=== PATIENT | female | born 1980 | race Caucasian/White ===

== ENCOUNTER 2018-01-24 23:21 | Emergency (ER) | payer OTHER ==
[2018-01-24 23:31] VITALS: BP 117/79; PULSE 69; TEMP 98.8; BMI 23.3
[2018-01-25] MEDS ORDERED: KETOROLAC TROMETHAMINE 60 MG/2 ML VIAL IM ONE (00:54)
--- NOTE | 2018-01-25 01:10 | PDOC ---
History of Present Illness - General Chief Complaint: Pain Stated Complaint: PAIN, ACUTE Time Seen by Provider: 01/25/18 00:00 History Source: Patient Exam Limitations: No Limitations - History of Present Illness Initial Comments: 01/25/18 01:04 37 yo female no significant PMH presents to the ED for right lateral thigh pain for 2 days. Patient states she works at a [employer] and walks a lot but noticed pain in the right lateral thigh that progressively worsened today. Pain is described as sharp and well localized (no radiation). Tried 1000mg of Tylenol today without relief. Patient admits to pain with weight bearing or motion in all directions but denies any trauma to the region, weakness, fevers/ chills, abdominal pain or back pain. Last menstrual period 2 weeks ago. Past History - Past Medical History Allergies/Adverse Reactions: Allergies Allergy/AdvReac Type Severity Reaction Status Date / Time No Known Allergies Allergy Verified 01/25/18 00:01 Home Medications: Ambulatory Orders NK [No Known Home Medication] 01/25/18 COPD: No - Suicide/Smoking/Psychosocial Hx Smoking History: Never smoked Have you smoked in the past 12 months: No Information on smoking cessation initiated: No Hx Alcohol Use: Yes (social) Drug/Substance Use Hx: No Substance Use Type: None Review of Systems - Review of Systems Constitutional: No: Chills, Fever, Weakness Respiratory: No: Shortness of Breath Cardiac (ROS): No: Chest Pain ABD/GI: Yes: Other (no abdominal pain). No: Nausea, Vomiting Musculoskeletal: Yes: Muscle Pain (right lateral thigh.). No: Back Pain, Joint Swelling, Muscle Weakness Integumentary: No: Bruising, Erythema, Lesions, Lumps Neurological: No: Weakness, Unsteady Gait *Physical Exam - Vital Signs Last Vital Signs Temp Pulse Resp BP Pulse Ox 98.8 F 69 16 117/79 100 01/24/18 23:29 01/24/18 23:29 01/24/18 23:29 01/24/18 23:29 01/24/18 23:29 - Physical Exam General Appearance: Yes: Nourished, Appropriately Dressed. No: Apparent Distress Respiratory/Chest: positive: Lungs Clear, Normal Breath Sounds Cardiovascular: positive: Regular Rhythm, Regular Rate, S1, S2. negative: Edema , JVD, Murmur Vascular Pulses: Dorsalis-Pedis (R): 4+, Doralis-Pedis (L): 4+ Gastrointestinal/Abdominal: positive: Flat, Soft. negative: Tender, Distended, Guarding, Rebound, Tenderness Musculoskeletal: positive: Other (point tenderness right lateral thigh. No redness, bruising or swelling noted on exam. ) Extremity: positive: Normal Capillary Refill Integumentary: positive: Normal Color, Dry, Warm Neurologic: positive: Fully Oriented, Alert, Normal Mood/Affect Medical Decision Making - Medical Decision Making 01/25/18 01:38 37 yo female no sig pmh presents for right lateral thigh pain for a 2 day period. No trauma, weakness or fevers. Patient able to ambulate slowly and has point tenderness over region. No redness , warmth or swelling noted. Sensation and strength equal bilaterally. Toradol 60mg IM given with some pain relief X ray of right thigh ordered DDX includes but is not limited to: muscle strain/overuse, Fracture (x ray to R/ o), beginning stages of necrotizing fasciitis (exam helps to r/o and strict return precautions will be given)
[2018-01-25] MEDS ORDERED: KETOROLAC TROMETHAMINE 60 MG/2 ML VIAL ONE (01:18)
--- NOTE | 2018-01-25 01:57 | PDOC ---
*Physical Exam - Vital Signs Last Vital Signs Temp Pulse Resp BP Pulse Ox 98.8 F 69 16 117/79 100 01/24/18 23:29 01/24/18 23:29 01/24/18 23:29 01/24/18 23:29 01/24/18 23:29 01/25/18 01:54 This patient's care was endorsed to me by Dr. Krishnamurthy at the end of his shift. Patient is a 37 YOF without PMH who p/w right lateral thigh pain for about the past 1.5 days, no known falls/injuries, believes that she may have been overusing the leg at work over the past few days. She was point-tender on exam, but no warmth, erythema, induration, fluctuance, etc. Given Toradol with improvement. Pending X-ray then will decide on dispo. ED Treatment Course - ADDITIONAL ORDERS Additional order review: Laboratory Results 01/25/18 00:00 Urine HCG, Qual Negative - Medications Given in the ED: ED Medications Discontinued Medications Generic Name Dose Route Start Last Admin Trade Name Nuha PRN Reason Stop Dose Admin Ketorolac Tromethamine 60 mg 01/25/18 00:54 01/25/18 01:24 Toradol Injection - IM 01/25/18 00:55 60 mg ONCE ONE Administration Medical Decision Making - Medical Decision Making Adult patient p/w right lateral thigh pain after overuse. Initial Vital Signs Temp Pulse Resp BP Pulse Ox 98.8 F 69 16 117/79 100 01/24/18 23:29 01/24/18 23:29 01/24/18 23:29 01/24/18 23:29 01/24/18 23:29 Laboratory Tests 01/25/18 00:00 Urine HCG, Qual Negative 01/25/18 02:57 Reassessment: Patient states still painful. Mild ttp of mid-shaft right lateral thigh in about a 3x3 cm area, no skin changes, no induration or fluctuance, no crepitus. 01/25/18 03:19 Ordered is Tylenol 975 mg as patient's last dose was at about 2:30 pm. 01/25/18 04:02 Patient states pain improved. She wants to go home. Repeat exam benign. This patient has gotten significant relief of symptoms while in the ED. On last reassessment, vitals are wnl, pain is reasonably controlled, and exam is benign. Workup is not concerning for emergency-level pathology at this time. This patient is appropriate for discharge with close outpatient follow up. They are comfortable with this plan and will follow up with their primary care provider tomorrow or Thursday. Orthopedist referral information given in case she has symptoms continuing in 1- 2 weeks. She will take Tylenol/Motrin for pain. Work note is given. Specific return precautions are discussed and they will come back to the ER if necessary. *DC/Admit/Observation/Transfer Diagnosis at time of Disposition: Right thigh pain - Discharge Dispostion Disposition: HOME Condition at time of disposition: Stable Decision to Admit order: No - Referrals Referrals: Janusz Sharif MD [Staff Physician] - - Patient Instructions Printed Discharge Instructions: DI for Leg Pain Additional Instructions: YOU WERE SEEN IN THE ER FOR RIGHT THIGH PAIN. WE DID AN EXAM, IMAGING STUDIES, AND GAVE YOU MEDICATIONS WHICH DID HELP TO IMPROVE YOUR SYMPTOMS. AFTER OUR ASSESSMENT, WE DO NOT BELIEVE YOU ARE HAVING A MEDICAL EMERGENCY AT THIS TIME, AND WE BELIEVE YOU ARE SAFE TO GO HOME. PLEASE FOLLOW UP WITH YOUR PRIMARY CARE PROVIDER TOMORROW. CALL THEIR CLINIC IN THE MORNING WHEN THEY OPEN, TELL THEM YOU WERE SEEN IN THE ER, AND TELL THEM YOU NEED A FOLLOW-UP. TAKE TYLENOL AND MOTRIN FOR THE PAIN, ALTERNATING THESE MEDICATIONS EVERY 3 HOURS. IF YOU HAVE ANY NEW OR WORSENING SYMPTOMS, ESPECIALLY WORSENING PAIN, SKIN REDNESS TO THE AREA, FEVER, CHILLS, OR ANY LESIONS OR PUS DRAINAGE FROM THE THIGH, PLEASE COME BACK TO THE ER AT ANY TIME (24 HOURS A DAY). IF YOU ARE HAVING SEVERE OR LIFE THREATENING SYMPTOMS, OR SYMPTOMS THAT MAKE IT UNSAFE TO DRIVE OR HAVE SOMEONE DRIVE YOU, PLEASE CALL 911. - Post Discharge Activity Forms/Work/School Notes: Back to Work
--- NOTE | 2018-01-25 02:06 | PDOC ---
Attending Attestation - Resident Resident Name: Tony Krishnamurthy - ED Attending Attestation I have performed the following: I have examined & evaluated the patient, The case was reviewed & discussed with the resident, I agree w/resident's findings & plan, Exceptions are as noted - HPI HPI: 01/25/18 02:04 37 yo female - Physicial Exam PE: 01/25/18 02:33 37 yo female is ambulating with some difficulty because of rt lateral thigh pain . She denies any recent trauma head ncat neck supple lungs cta b/l cvs [id number] abd flat extremity : the right thigh has no area of induration,no erythema,no palpable mass, no deformity noted neuro axox3,ambulatory - Medical Decision Making 01/25/18 02:43 preg test xray toradol and reassess
[2018-01-25] MEDS ORDERED: ACETAMINOPHEN 500 MG TABLET (FP) PO ONE ×2 (03:19→03:22)
[2018-01-25] MEDS ORDERED: ACETAMINOPHEN 325 MG TABLET (FP) ONE (03:30)
== END 2018-01-25 04:07 | disposition home or self-care (01) ==
LOC: JER 23:21
PROC: 3E0233Z Introduction of Anti-inflammatory into Muscle, Percutaneous Approach (ICD-10-PCS; principal; 2018-01-24)
DX: M79.651 Pain in right thigh (principal); M70.851 Other soft tissue disorders related to use, overuse and pressure, right thigh; Y93.89 Activity, other specified
CPT/HCPCS: 73552-TC-RT-FY; 84703; 99282-25